=== PATIENT | male | born 1995 | race Two or more races ===

== ENCOUNTER 2018-11-12 11:40 | Emergency (ER) | payer MEDICAID ==
[~2018-11-12] VITALS: Ht 167.6 cm; Wt 88.5 kg
[2018-11-12 12:38] VITALS: BP 108/67
== END 2018-11-12 13:46 | disposition home or self-care (01) ==
LOC: ER 11:40
DX: S60.222A Contusion of left hand, initial encounter (principal); W22.8XXA Striking against or struck by other objects, initial encounter; Y93.89 Activity, other specified; Y99.8 Other external cause status; Y92.89 Other specified places as the place of occurrence of the external cause
CPT/HCPCS: 73130